=== PATIENT | male | born 1965 | race American Indian/Alaskan Native ===

== ENCOUNTER 2018-11-30 16:18 | Emergency (ER) | payer OTHER ==
--- NOTE | 2018-11-30 16:29 | Event Note ---
ED Screening Note Date of service: 11/30/18 Time: 16:25 ED Screening Note: This is a 53 y.o. M. that presents to the ER with swelling and pain to right wrist and fingers for 1 week. Patient broke right wrist 2 weeks ago and a splint applied at [facility]. This initial assessment/diagnostic orders/clinical plan/treatment(s) is/are subject to change based on patients health status, clinical progression and re- assessment by fellow clinical providers in the ED. Further treatment and workup at subsequent clinical providers discretion. Patient/guardian urged not to elope from the ED as their condition may be serious if not clinically assessed and managed. Initial orders include: XR right wrist and labs
--- NOTE | 2018-11-30 16:39 | Emergency Department Report ---
ED General Adult HPI - General Chief complaint: Extremity Injury, Upper Stated complaint: R HAND PAIN/SWOLLEN Time Seen by Provider: 11/30/18 16:30 Source: patient Mode of arrival: Ambulatory Limitations: No Limitations - History of Present Illness Initial comments: Patient is a 53-year-old male presents emergency room with complaints of worsening right wrist pain. Patient states he went to [facility] 2 weeks ago and was treated and discharged for wrist pain and shoulder injury. Patient's original injury was she fell off a scooter and landed on his right arm. Patient was diagnosed with a right wrist fracture and a right clavicle fracture. Patient was placed in a splint in the ER. Patient states he has not seen an orthopedist since being discharged from the ER at [facility] [place]. Patient states he ran out of pain medications 2 days ago. Patient states he needs a refill of pain medications. Patient states the pain in his right wrist is a 10 out of 10. Patient states the pain in his right shoulder is a 10 out of 10. Patient states his pain is better with rest and worse with movement. Patient denies fever or chills. Patient denies loss of movement in either hand. Location: right, upper extremity Radiation: non-radiation Severity scale (0 -10): 10 Quality: stabbing Consistency: constant Improves with: medication, rest Worsens with: movement Associated Symptoms: denies other symptoms. denies: confusion, chest pain, cough, diaphoresis, fever/chills, headaches, loss of appetite, malaise, nausea/vomiting, rash, seizure, shortness of breath, syncope, weakness Treatments Prior to Arrival: NSAID - Related Data Previous Rx's Medication Instructions Recorded Last Taken Type Ibuprofen [Motrin 600 MG tab] 600 mg PO Q8H #21 tablet 04/20/18 Unknown Rx HYDROcodone/APAP 7.5-325 [[place] 1 each PO Q6HR PRN #12 tablet 11/30/18 Unknown Rx 7.5/325] amLODIPine [Norvasc] 10 mg PO DAILY 15 Days #15 tab 11/30/18 Unknown Rx Allergies Allergy/AdvReac Type Severity Reaction Status Date / Time No Known Allergies Allergy Verified 04/20/18 15:34 ED Review of Systems ROS: Stated complaint: R HAND PAIN/SWOLLEN Other details as noted in HPI Constitutional: denies: chills, fever Eyes: denies: eye pain, eye discharge, vision change ENT: denies: ear pain, throat pain Respiratory: denies: cough, shortness of breath, wheezing Cardiovascular: denies: chest pain, palpitations Endocrine: no symptoms reported Gastrointestinal: denies: abdominal pain, nausea, diarrhea Genitourinary: denies: urgency, dysuria Musculoskeletal: denies: back pain, joint swelling, arthralgia Skin: denies: rash, lesions Neurological: denies: headache, weakness, paresthesias Psychiatric: denies: anxiety, depression Hematological/Lymphatic: denies: easy bleeding, easy bruising ED Past Medical Hx - Past Medical History Previous Medical History?: Yes Hx Hypertension: Yes - Surgical History Past Surgical History?: No - Family History Family history: no significant - Social History Smoking Status: Current Every Day Smoker Substance Use Type: Alcohol - Medications Home Medications: Home Medications Medication Instructions Recorded Confirmed Last Taken Type Ibuprofen [Motrin 600 MG tab] 600 mg PO Q8H #21 tablet 04/20/18 Unknown Rx HYDROcodone/APAP 7.5-325 [[place] 1 each PO Q6HR PRN #12 tablet 11/30/18 Unknown Rx 7.5/325] amLODIPine [Norvasc] 10 mg PO DAILY 15 Days #15 tab 11/30/18 Unknown Rx ED Physical Exam - General Limitations: No Limitations General appearance: alert, in no apparent distress - Head Head exam: Present: atraumatic, normocephalic - Eye Eye exam: Present: normal appearance - ENT ENT exam: Present: mucous membranes moist - Neck Neck exam: Present: normal inspection - Respiratory Respiratory exam: Present: normal lung sounds bilaterally. Absent: respiratory distress - Cardiovascular Cardiovascular Exam: Present: regular rate, normal rhythm. Absent: systolic murmur, diastolic murmur, rubs, gallop - GI/Abdominal GI/Abdominal exam: Present: soft, normal bowel sounds. Absent: distended, tenderness, guarding - Rectal Rectal exam: Present: deferred - Extremities Exam Extremities exam: Present: normal inspection (right forearm splint.), full ROM (full range of motion noted with all joints except for right shoulder and right upper extremity), tenderness (right shoulder), normal capillary refill, other (right forearm splint noted. Splint appears to be old and the original place in the ER. Normal cap refill noted and right hand. No pain with movement of the right fingers. Normal coloration to right hand. Right hand is normal temperature to touch). Absent: calf tenderness - Back Exam Back exam: Present: normal inspection - Neurological Exam Neurological exam: Present: alert, oriented X3 - Psychiatric Psychiatric exam: Present: normal affect, normal mood - Skin Skin exam: Present: warm, dry, intact, normal color. Absent: rash ED Course Vital Signs 11/30/18 11/30/18 11/30/18 16:26 18:12 19:30 Temperature 97.9 F 98.1 F 98.4 F Pulse Rate 125 H 88 94 H Respiratory 20 18 14 Rate Blood Pressure 154/109 Blood Pressure 170/104 182/123 [Left] O2 Sat by Pulse 97 95 96 Oximetry 11/30/18 11/30/18 11/30/18 19:40 19:45 22:30 Temperature Pulse Rate 94 H 96 H Respiratory 16 20 Rate Blood Pressure 173/122 182/120 Blood Pressure 193/127 [Left] O2 Sat by Pulse 95 Oximetry 11/30/18 11/30/18 23:00 23:15 Temperature Pulse Rate 85 85 Respiratory 17 Rate Blood Pressure 171/118 Blood Pressure 162/114 [Left] O2 Sat by Pulse 95 Oximetry - Reevaluation(s) Reevaluation #1: Discussed results with patient. Patient agrees with plan of care. Patient's repeat CK after the patient has gotten some IV fluids. Patient's blood pressure is noted to be elevated. Patient states he has high blood pressure but has not been taking his medications. Patient will be given Norvasc 5 mg. 11/30/18 20:01 Reevaluation #2: Patient's blood pressure still elevated and patient will be given clonidine 0.2 mg 11/30/18 21:55 Reevaluation #3: Patient's blood pressure still significantly elevated. Patient denies pain. Patient will be given hydralazine 20 mg 11/30/18 22:52 Reevaluation #4: Patient's blood pressure is much better. Patient current blood pressure is 150/102. I discussed all results with patient. I discussed plan of care with patient. Patient agrees with plan of care and discharged. Patient stable for discharge. Patient discharged home. Patient given discharge instructions. Patient given medication instructions. Patient voiced understanding of all instructions. 11/30/18 23:37 ED Medical Decision Making - Lab Data Result diagrams: 11/30/18 16:44 11/30/18 16:44 - Radiology Data Radiology results: report reviewed RIGHT SHOULDER 3 VIEWS INDICATION / CLINICAL INFORMATION: Injury on 11/12/2018. Now with right shoulder pain. COMPARISON: None available. FINDINGS: BONES / JOINT(S): There is an acute fracture of the distal right clavicle with superior displacement and distraction of the proximal fracture fragment. No AC joint separation is seen. The glenohumeral joint is intact. No significant arthritis. SOFT TISSUES: No significant abnormality. ADDITIONAL FINDINGS: The visualized portion of the right lung is clear. IMPRESSION: Acute fracture of the distal right clavicle approximately 1 cm proximal to the acromioclavicular joint. RIGHT WRIST 3 VIEW(S) INDICATION / CLINICAL INFORMATION: swelling, PAIN TO R WRIST COMPARISON: None available. FINDINGS: Overlying cast material obscures bone and soft tissue detail. There is an acute, comminuted, articular fracture distal radius with mild impaction and volar angulation. No additional fractures identified, although the carpal bones are not well evaluated due to the presence of the cast. There are mild degenerative changes at the thumb carpometacarpal joint. No significant soft tissue swelling is evident. IMPRESSION: Comminuted and mildly impacted articular distal radius fracture with volar angulation. - Medical Decision Making Patient is a 53-year-old mellitus emergency room for right wrist pain and right shoulder pain. Patient fell 2 weeks ago and ran out of his pain medications and needs a refill of his pain medications. Patient never saw a orthopedist. Patient has no signs or symptoms of compartment syndrome. Patient's splint removed in order to assess for compartment syndrome and his limb fully. X-rays done and show fractures. Patient's labs done and negative except for an elevated CK. Patient given IV fluids and is CK improved. Patient found to have elevated blood pressure and given multiple medications to bring it down to a more acceptable range for discharge. Patient will be discharged home with pain medications and blood pressure medications. - Differential Diagnosis wrist pain. Wrist fracture. Shoulder pain. Clavicle fracture. Critical Care Time: Yes Critical care attestation.: If time is entered above; I have spent that time in minutes in the direct care of this critically ill patient, excluding procedure time. Critical Care Time: 35 minutes ED Disposition Clinical Impression: Hypertensive urgency, Wrist pain, left, Elevated CK Hypertension Qualifiers: Hypertension type: essential hypertension Qualified Code(s): I10 - Essential (primary) hypertension Shoulder pain Qualifiers: Chronicity: acute Laterality: right Qualified Code(s): M25.511 - Pain in right shoulder Distal radius fracture, right Qualifiers: Encounter type: initial encounter Fracture type: closed Fracture morphology: unspecified fracture morphology Qualified Code(s): S52.501A - Unspecified fracture of the lower end of right radius, initial encounter for closed fracture Clavicle fracture Qualifiers: Encounter type: initial encounter Clavicle location: lateral end Fracture type: closed Fracture alignment: displaced Laterality: right Qualified Code(s): S42.031A - Displaced fracture of lateral end of right clavicle, initial encounter for closed fracture Disposition: -01 TO HOME OR SELFCARE Is pt being admited?: No Does the pt Need Aspirin: No Condition: Stable Instructions: Clavicle Fracture (ED), Wrist Injury (ED), Wrist Fracture in Adults (ED), Heart Healthy Diet (ED), How to Take a Blood Pressure (ED), DASH Eating Plan (ED), Low Sodium Diet (ED), Hypertension (ED) Additional Instructions: Patient to follow up with primary care in 2-3 days. Patient to follow-up with orthopedist in 2-3 days. Patient to keep right arm in sling until cleared by orthopedist. Patient to return to ER if condition worsens. Patient to do take Tylenol when necessary for pain. Patient to monitor blood pressure. Patient to take blood pressure medications. Patient to eat a low-salt and heart healthy diet. Patient to take pain medications as needed. Prescriptions: HYDROcodone/APAP 7.5-325 [[place] 7.5/325] 1 each PO Q6HR PRN #12 tablet PRN Reason: Pain amLODIPine [Norvasc] 10 mg PO DAILY 15 Days #15 tab Referrals: MILAGROS GAMBLE MD [Primary Care Provider] - 2-3 Days IQRA CALVIN MD [Staff Physician] - 2-3 Days Time of Disposition: 23:39
[2018-11-30 16:52] LABS: Hematocrit 33.6 % (35.5-45.6); Hemoglobin 11.8 gm/dl (11.8-15.2); Mean Corpuscular HGB Conc 35 % (32-34); Mean Corpuscular Volume 95 fl (84-94); Platelet Count 373 K/mm3 (140-440); Red Blood Count 3.53 M/mm3 (3.65-5.03)
[2018-11-30 17:08] LABS: Alanine Aminotransferase 14 units/L (7-56); Albumin 4.2 g/dL (3.9-5); BUN/Creatinine Ratio 12; Blood Urea Nitrogen 15 mg/dL (9-20); Hemolysis Index 40
--- NOTE | 2018-11-30 17:18 | XRay Report ---
RIGHT SHOULDER 3 VIEWS INDICATION / CLINICAL INFORMATION: Injury on 11/12/2018. Now with right shoulder pain. COMPARISON: None available. FINDINGS: BONES / JOINT(S): There is an acute fracture of the distal right clavicle with superior displacement and distraction of the proximal fracture fragment. No AC joint separation is seen. The glenohumeral j oint is intact. No significant arthritis. SOFT TISSUES: No significant abnormality. ADDITIONAL FINDINGS: The visualized portion of the right lung is clear. IMPRESSION: Acute fracture of the distal right clavicle approximately 1 cm proximal to the acromiocla vicular joint. Signer Name: Cale Fong MD Signed: 11/30/2018 5:14 PM Workstation Name: [id number]
--- NOTE | 2018-11-30 17:18 | XRay Report ---
RIGHT WRIST 3 VIEW(S) INDICATION / CLINICAL INFORMATION: swelling, PAIN TO R WRIST COMPARISON: None available. FINDINGS: Overlying cast material obscures bone and soft tissue detail. There is an acute, comminuted, articula r fracture distal radius with mild impaction and volar angulation. No additional fractures identified , although the carpal bones are not well evaluated due to the presence of the cast. There are mild de generative changes at the thumb carpometacarpal joint. No significant soft tissue swelling is evident . IMPRESSION: Comminuted and mildly impacted articular distal radius fracture with volar angulation. Consider repea t 4 view wrist series out of the cast evaluate for additional injury. Signer Name: Iron Donovan MD Signed: 11/30/2018 5:14 PM Workstation Name: [id number]
[2018-11-30] MEDS ORDERED: NACL 0.9% 1000 ML 1,000 ML IV ONE ×2 (18:08→19:21)
[2018-11-30] MEDS ORDERED: DILAUDID IV ONE (18:08)
[2018-11-30 19:02] LABS: Bilirubin,Urine NEG (Negative); Blood,Urine NEG (Negative); Color,Urine Yellow (Yellow); Hyaline Casts,Urine 5 /LPF; Mucus,Urine FEW /HPF
[2018-11-30] MEDS ORDERED: NORVASC ONE (19:40)
[2018-11-30] MEDS ORDERED: NORVASC PO ONE (19:40)
[2018-11-30] MEDS ORDERED: CATAPRES PO ONE (21:45)
[2018-11-30] MEDS ORDERED: CATAPRES ONE (21:46)
[2018-11-30] MEDS ORDERED: APRESOLINE IV ONE (22:52)
[2018-11-30 23:38] VITALS: BP 150/102
== END 2018-12-01 | disposition home or self-care (01) ==
LOC: ED 16:18
DX: S52.501A Unspecified fracture of the lower end of right radius, initial encounter for closed fracture (principal); S42.031A Displaced fracture of lateral end of right clavicle, initial encounter for closed fracture; I16.0 Hypertensive urgency; R74.8 Abnormal levels of other serum enzymes; Z76.0 Encounter for issue of repeat prescription; V87.8XXA Person injured in other specified noncollision transport accidents involving motor vehicle (traffic), initial encounter; Y93.89 Activity, other specified; Y92.89 Other specified places as the place of occurrence of the external cause; Y99.8 Other external cause status
CPT/HCPCS: 29125; 36415; 73030; 73110; 80053; 81001; 82550; 85027; 96374; 96375; 99285; J0360; J1170; J7030